=== PATIENT | female | born 1985 | race Caucasian/White ===

== ENCOUNTER 2024-05-01 15:38 | Outpatient (CLI) | payer BC ==
[2024-05-01 16:19] LABS: Basophils % (A) 0 %; Eosinophils # (A) 0.1 k/uL (0-0.7); Eosinophils % (A) 1 %; HCT 37.9 % (34.0-46.0); HGB 12.7 gm/dL (11.4-16.0); Lymphocytes # (A) 2.2 k/uL (1.0-4.8); Lymphocytes % (A) 17 %; MCH 30.4 pg (25.0-35.0); MCHC 33.4 g/dL (31.0-37.0); Mean Platelet Volume 8.5; Monocytes # (A) 0.7 k/uL (0-1.0); Monocytes % (A) 5 %; Neutrophils # (A) 9.9 k/uL (1.3-7.7); Neutrophils % (A) 76 %; Platelet Count 227 k/uL (150-450); RBC 4.16 m/uL (3.80-5.40); RDW 13.2 % (11.5-15.5)
[2024-05-01 16:23] VITALS: RESP 16
[2024-05-01 16:30] LABS: Appearance,Urine Clear (Clear); Bacteria,Urine Moderate /hpf; Bilirubin,Urine Negative (Negative); Blood,Urine Negative (Negative); Color,Urine Colorless; Glucose,Urine (UA) Negative (Negative); Ketones,Urine Negative (Negative); Leukocyte Esterase,Urine Large (Negative); Nitrite,Urine Negative (Negative); Protein,Urine Negative (Negative); RBC,Urine <1 /hpf (0-5); Specific Gravity,Urine 1.004 (1.001-1.035); Squamous Epithelial Cell,Urine 6 /hpf (0-4); Transitional Epi Cells,Urine <1 /hpf (0-1); Urobilinogen,Urine <2.0 mg/dL (<2.0); WBC,Urine 1 /hpf (0-5)
[2024-05-01 16:36] LABS: ALT 14 U/L (4-34); AST 23 U/L (14-36); African American GFR (CKD) >90 (>60 ml/min/1.73 sqM); Blood Urea Nitrogen 10 mg/dL (7-17); LDH 145 U/L (120-246); Non-African American GFR(CKD) >90 (>60 ml/min/1.73 sqM)
[2024-05-01 16:37] LABS: Protein/Creatinine Ratio,Urine 0.792
[2024-05-01 17:00] VITALS: BP 128/82; PULSE 87; TEMP 97.9
--- NOTE | 2024-05-05 12:10 | P.MSEPDOC ---
Presenting Problems - Arrival Data Date of Arrival on Unit: 05/01/24 Time of Arrival on Unit: 15:38 Mode of Transport: Ambulatory - Complaint OB-Reason for Admission/Chief Complaint: PIH Comment: came from office with order Medical History - Information : 1 Para: 0 Term: 0 : 0 Abortions: Spontaneous or Elective: 0 Number of Living Children: 0 - Gestational Age Gestational Age by JORDI (wks/days): 32 Weeks and 4 Days Review of Systems - Review of Systems Constitutional: No problems Breast: No problems ENT: No problems Cardiovascular: No problems Respiratory: No problems Gastrointestinal: No problems Genitourinary: No problems Musculoskeletal: No problems Neurological: No problems Skin: No problems Vital Signs - Temperature Temperature: 97.9 F Temperature Source: Temporal Artery Scan - Pulse Pulse Oximetery Pulse Rate: 87 Pulse Assessment Method: Pulse Oximetry - Respirations Respiratory Rate: 16 Oxygen Delivery Method: Room Air O2 Sat by Pulse Oximetry: 95 - Blood Pressure Right Arm Blood Pressure: 128/82 Blood Pressure Mean: 97 Blood Pressure Source: Automatic Cuff Medical Screen Scoring - Assessment - Baby A Heart Rate - NICHD Category: Category I (Normal) Physician Notification - Physician Notified Physician Notified Date: 05/01/24 Physician Notified Time: 16:39 Physician: Shelbi Jha New Order Received: Yes (d/c home) Maternal Triage Index - Maternal Triage Index Presenting for scheduled procedure w/no complaint: No - Stat/Priority 1 Stat Priority 1: No - Urgent/Priority 2 Urgent Priority 2: No - Prompt/Priority 3 Prompt Priority 3: No - Non-Urgent/Priority 4 Non-Urgent Priority 4: No - Scheduled/Requesting Priority 5 Scheduled/Requesting Priority 5: Yes Criteria Met for Priority 5: pt sent over from office for PIH work up Disposition - Disposition OB Disposition: Discharge to home Discharge Date: 05/01/24 Discharge Time: 16:45 I agree with the RN Medical Screening Exam: Yes Case reviewed; plan agreed upon as documented in EMR&OBIX.: Yes Diagnosis: RELATED CONDITIONS, UNSPECIFIED, THIRD TRIMESTER
== END 2024-05-01 16:45 | disposition home or self-care (01) ==
LOC: FBPOP 15:38
PROVIDERS: ATTEND Obstetrics & Gynecology Obstetrics
DX: O13.3 Gestational [pregnancy-induced] hypertension without significant proteinuria, third trimester (principal); Z3A.32 32 weeks gestation of pregnancy
CPT/HCPCS: 36415; 59025; 81001; 82565; 82570; 83615; 84156; 84450; 84460; 84520; 84550; 85025; 99215

== ENCOUNTER 2024-06-17 16:28 | Inpatient (IN) | payer BC ==
[2024-06-17] MEDS: LACTATED RINGERS 1,000 ML IV SCH (19:10)
[2024-06-17] MEDS ORDERED: TRANEXAMIC 1,000 MG/100ML-NACL 1,000 MG in EMPTY BAG 1 BAG IV PRN (19:12)
[2024-06-17] MEDS ORDERED: CARBOPROST TROMETHAMINE 250 MCG/ML 1 ML AMP IM PRN (19:12)
[2024-06-17] MEDS ORDERED: TERBUTALINE 1 MG/ML VIAL SQ PRN (19:12)
[2024-06-17] MEDS ORDERED: OXYTOCIN 10 UNIT/ML 1 ML VIAL IM PRN (19:12)
[2024-06-17] MEDS ORDERED: miSOPROStoL 200 MCG TAB PO PRN (19:12)
[2024-06-17] MEDS ORDERED: miSOPROStoL 200 MCG TAB RECTAL PRN (19:12)
[2024-06-17] MEDS ORDERED: LIDOCAINE 0.5% (PF) 5 MG/ML (50 ML SDV) SQ PRN (19:12)
[2024-06-17] MEDS ORDERED: METHYLERGONOVINE 0.2 MG/ML 1 ML AMP IM PRN (19:12)
[2024-06-17 19:35] LABS: Basophils # (A) 0.1 k/uL (0-0.2); Basophils % (A) 1 %; Eosinophils % (A) 0 %; HCT 41.5 % (34.0-46.0); Lymphocytes # (A) 2.2 k/uL (1.0-4.8); Lymphocytes % (A) 16 %; MCH 30.8 pg (25.0-35.0); MCHC 33.8 g/dL (31.0-37.0); MCV 91.3 fL (80.0-100.0); Mean Platelet Volume 9.7; Monocytes # (A) 0.7 k/uL (0-1.0); Monocytes % (A) 5 %; Neutrophils # (A) 10.9 k/uL (1.3-7.7); Neutrophils % (A) 78 %; Platelet Count 177 k/uL (150-450); RBC 4.55 m/uL (3.80-5.40); RDW 13.5 % (11.5-15.5)
[2024-06-17] MEDS ORDERED: fentaNYL (PF) 50 MCG/ML 5 ML AMP ONE (20:16)
[2024-06-17] MEDS ORDERED: SODIUM CHLORIDE 0.9% 250 ML BAG ONE (20:16)
[2024-06-17] MEDS ORDERED: ROPIVACAINE 5 MG/ML 30 ML VIAL ONE (20:16)
[2024-06-18] MEDS: OXYTOCIN 30 UNITS/500 ML NS 30 UNIT in SALINE 1 500ML.BAG IV SCH (07:30)
[2024-06-18] MEDS: CITRIC ACID-SODIUM CITRATE 15 ML CUP PO ONE (15:52)
[2024-06-18] MEDS ORDERED: ONDANSETRON 4 MG/2 ML VIAL ONE (16:12)
[2024-06-18] MEDS ORDERED: MORPHINE SULFATE (PF) 0.3 MG/0.3 ML SYR ONE (16:12)
[2024-06-18] MEDS ORDERED: OXYTOCIN 30 UNITS/500 ML NS BAG IV ONE (16:12)
[2024-06-18] MEDS ORDERED: fentaNYL (PF) 50 MCG/ML 2 ML AMP ONE (16:12)
--- NOTE | 2024-06-18 17:11 | P.OP ---
Date of Procedure: 06/18/24 Preoperative Diagnosis: IUP @ 39 4/7 weeks, blood stained amniotic fluid, arrest of dilation Postoperative Diagnosis: same Procedure(s) Performed: primary low-transverse section Anesthesia: epidural Surgeon: Shelbi Jha Sheep Shearer #1: Vannessa Harrison Estimated Blood Loss (ml): 889 IV fluids (ml): 1,000 Urine output (ml): 50 (maryjo colored) Pathology: other (placenta) Condition: stable Disposition: observation Indications for Procedure: The 8-year-old G2, P0 at 39+ weeks that presented to labor and delivery with complaints of regular painful contractions last evening. Patient was admitted to labor and delivery after cervical change was appreciated. Patient requested epidural and this was placed without difficulty by the anesthesia department. Patient made minimal progress to the evening, amniotomy was performed this morning and patient was noted to be 5 cm. Pitocin augmentation of labor was begun as contractions were spaced to every 7 minutes, mostly irregular. Patient made good progress through the morning to 9 cm. Patient has had no further progress past 9 cm, bloody stained amniotic fluid is appreciated. Reassuring heart tones category 1 are appreciated. Patient was counseled on arrest of dilation and reasoning behind primary C- section. Multiple questions are answered and patient and significant other agreed to proceed with section. Operative Findings: Male delivered at 1628, weight of 8 pounds 2 ounces, Apgars of 7 and 9 at 1 and 5 minutes respectively. Large amount of caput appreciated upon delivery of . Normal uterus, ovaries and tubes appreciated. Description of Procedure: Patient was taken back to the operating suite where epidural anesthesia was found be adequate. She is prepped and draped in the normal sterile fashion in the dorsal supine position. A Pfannenstiel skin incision was made with a scalpel and carried through the underlying layer of fascia. Fascia was incised in the midline and extended laterally. The superior aspect of the fascial incision was then grasped with Shelby clamps, elevated and the underlying rectus muscle was dissected off sharply. The inferior aspect of the fascial incision was then grasped with Shelby clamps, elevated and the underlying rectus muscle was dissected off sharply. The bladder blade was inserted in the pelvis, the vesicouterine peritoneum was identified and the bladder flap was created using sharp dissection. Hysterotomy incision was then made with a scalpel was elevated through the hysterotomy incision and delivered in the usual fashion. Spontaneous cry was noted. Umbilical cord was doubly clamped and cut, placenta was delivered manually. The uterus was cleared of all clots and debris. The uterine incision was closed with 0 Vicryl in a running locked fashion, a second imbricating suture was used to obtain hemostasis. The pelvis was then cleared of all clots and debris. On inspection the patient's hysterotomy incision a small amount of bleeding was noted on the midportion of the incision therefore a swjdir-dx-iofav suture was used to obtain hemostasis. Uterus was returned to the abdomen. Hysterotomy incision was inspected and found to be hemostatic. It was then loosely reapproximated. Rectus muscles were inspected and found to be hemostatic. Fascia was then closed with 0 Vicryl in a running fashion from 1 lateral edge to the other. Subcutaneous tissue was irrigated found to be hemostatic and closed with 3-0 Vicryl in a running fashion. Skin was then closed with 4-0 Vicryl in a subcuticular fashion. Steri-Strips and sterile dressings were applied. All counts were noted be correct x 2. Patient and infant tolerated delivery well and are resting comfortably.
[2024-06-18] MEDS ORDERED: ONDANSETRON 4 MG/2 ML VIAL IVP PRN (17:31)
[2024-06-18] MEDS ORDERED: METOCLOPRAMIDE 5 MG/ML 2 ML VIAL IVP PRN (17:31)
[2024-06-18] MEDS ORDERED: ZOLPIDEM 5 MG TAB PO PRN (17:31)
[2024-06-18] MEDS ORDERED: diphenhydrAMINE 25 MG CAP PO PRN (17:31)
[2024-06-18] MEDS ORDERED: diphenhydrAMINE 50 MG/ML 1 ML VIAL IVP PRN ×2 (17:31)
[2024-06-18] MEDS ORDERED: SIMETHICONE 80 MG CHEWABLE PO PRN (17:31)
[2024-06-18] MEDS ORDERED: diphenhydrAMINE 50 MG CAP PO PRN (17:31)
[2024-06-18] MEDS ORDERED: NALOXONE 0.4 MG/ML 1 ML VIAL IV PRN (17:31)
[2024-06-18] MEDS: LACTATED RINGERS 1,000 ML IV ONE (17:43)
[2024-06-18] MEDS: ACETAMINOPHEN IV (For NPO) 1,000 MG in EMPTY BAG 1 BAG IVPB ONE (20:12)
[2024-06-18] MEDS: SENNOSIDES-DOCUSATE SODIUM 1 EACH TAB PO SCH (20:29)
[2024-06-18] MEDS: LACTATED RINGERS 1,000 ML IV SCH (22:02)
[2024-06-19] MEDS: IBUPROFEN IV 800 MG in SODIUM CHLORIDE 0.9% 250 ML IV ONE (00:36)
[2024-06-19] MEDS: ACETAMINOPHEN TAB 500 MG TAB PO SCH (04:29)
[2024-06-19 06:41] LABS: Basophils # (A) 0.1 k/uL (0-0.2); Basophils % (A) 0 %; Eosinophils % (A) 0 %; HCT 32.2 % (34.0-46.0); Lymphocytes # (A) 1.9 k/uL (1.0-4.8); Lymphocytes % (A) 8 %; MCH 31.4 pg (25.0-35.0); MCHC 34.1 g/dL (31.0-37.0); MCV 92.2 fL (80.0-100.0); Mean Platelet Volume 9.7; Monocytes # (A) 0.7 k/uL (0-1.0); Monocytes % (A) 3 %; Neutrophils # (A) 19.8 k/uL (1.3-7.7); Neutrophils % (A) 87 %; Platelet Count 156 k/uL (150-450); WBC 22.6 k/uL (3.8-10.6)
[2024-06-19] MEDS: KETOROLAC 15 MG/ML 1 ML VIAL IVP SCH (07:59)
--- NOTE | 2024-06-19 08:38 | P.PNOBGPC ---
Subjective - Subjective Principal diagnosis: Postop day 1, primary Interval history: Patient is doing well. Breast-feeding is going well. She denies concerns this morning. Lochia is minimal. She states pain is well-controlled. Patient reports: Reports appetite normal, Reports voiding normally, Reports pain well controlled, Reports ambulating normally [place]: doing well Objective - Vital Signs Latest vital signs: Vital Signs Temp Pulse Pulse Resp BP BP Pulse Ox 06/19/24 08:00 98 F 77 16 132/76 99 06/19/24 04:00 98.0 F 71 16 136/74 99 06/19/24 01:00 98.1 F 73 16 134/74 98 06/18/24 21:02 73 70 16 06/18/24 19:02 73 16 131/77 100 06/18/24 18:47 74 16 127/74 98 06/18/24 18:32 76 16 132/80 100 06/18/24 18:17 74 16 140/87 100 06/18/24 18:02 77 16 146/79 100 06/18/24 17:47 74 16 121/81 100 06/18/24 17:32 76 16 114/71 98 06/18/24 17:17 81 16 117/64 98 06/18/24 17:02 98.1 F 85 16 123/68 97 Intake and Output 06/18/24 06/19/24 06/19/24 22:59 06:59 14:59 Output Total 800 500 Balance -800 -500 Output: Urine 800 500 Uretheral (Shannon) 800 Other: Voiding Method Indwelling Catheter - Exam Extremities: Present: normal, edema Abdomen: Present: normal appearance, soft Incision: Present: normal, dry, intact Uterus: Present: normal, firm - Labs Labs: Abnormal Lab Results - Last 24 Hours (Table) 06/19/24 Range/Units 05:52 WBC 22.6 H (3.8-10.6) k/uL RBC 3.50 L (3.80-5.40) m/uL Hgb 11.0 L D (11.4-16.0) gm/dL Hct 32.2 L (34.0-46.0) % Neutrophils # 19.8 H (1.3-7.7) k/uL Assessment and Plan (1) Term Current Visit: Yes Status: Acute Code(s): Z34.90 - ENCNTR FOR SUPRVSN OF NORMAL , UNSP, UNSP TRIMESTER SNOMED Code(s): 85687196 (2) Active labor Current Visit: Yes Status: Acute Code(s): VZE9090 - SNOMED Code(s): 823399475 (3) Status post section Current Visit: Yes Status: Acute Code(s): Z98.891 - HISTORY OF UTERINE SCAR FROM PREVIOUS SURGERY SNOMED Code(s): 210146491 (4) Arrest of dilation, delivered, current hospitalization Current Visit: Yes Status: Acute Code(s): O62.1 - SECONDARY UTERINE INERTIA SNOMED Code(s): 56073000 (5) Asynclitism Current Visit: Yes Status: Acute Code(s): O32.8XX0 - MATERNAL CARE FOR OTH MALPRESENTATION OF FETUS, UNSP SNOMED Code(s): 14777072 Plan: Patient is doing well postoperatively. Will encourage increased ambulation. Discontinue bandage at 24 hours. Continue routine postoperative care
--- NOTE | 2024-06-19 14:57 | P.PN ---
Progress Note - Text 06/19/24 623am 38-year-old female status post with spinal Duramorph. Patient seen and evaluated for postop pain control with a VAS of 5, she has complaints of nausea vomiting yesterday, doing better today. She does have mild pruritus which should subside.
[2024-06-19] MEDS: PRENATAL VIT-IRON-FOLIC ACID 1 EACH TABLET PO SCH (18:21)
[2024-06-19] MEDS: IBUPROFEN 800 MG TAB PO SCH (23:45)
[2024-06-20 03:25] VITALS: TEMP 97.8
--- NOTE | 2024-06-20 06:58 | P.DS ---
Providers Date of admission: 06/17/24 18:40 Expected date of discharge: 06/20/24 Attending physician: Shelbi Jha Primary care physician: Stated None - Discharge Diagnosis(es) (1) Term Current Visit: Yes Status: Acute (2) Active labor Current Visit: Yes Status: Acute (3) Status post section Current Visit: Yes Status: Acute (4) Arrest of dilation, delivered, current hospitalization Current Visit: Yes Status: Acute (5) Asynclitism Current Visit: Yes Status: Acute Hospital Course: 8-year-old G2 now P1 011 that presented to labor and delivery on 06/18 with complaints of contractions. Patient did have noted cervical change in triage therefore was admitted to labor and delivery. Patient did become uncomfortable and request epidural through the night. Patient made minimal to no change through the night therefore amniotomy was performed and Pitocin augmentation of labor was begun. Patient made slow progress through the day, patient was noted to be 9 cm, after approximately 4 hours and no progression past 9 cm amniotic fluid was noted to be with occasional clot passage. Patient was counseled on findings and agreed with recommendation for primary for maternal and wellbeing. Patient was taken back to the operating suite where a viable male was delivered at 1628, weight of 8 pounds 2 ounces, Apgars of 7 and 9 at 1 and 5 minutes respectively. For full details on the please see the operative report. Postoperatively this patient is doing well. In this postoperative day #2 she is ambulating and voiding without difficulty. She is tolerating a regular diet without nausea or vomiting. She states her pain is well-controlled. She denies concerns and would like discharge home later today. Patient Condition at Discharge: Good Plan - Discharge Summary New Discharge Prescriptions: No Action Vit No.179/Iron/Folic [ Tablet] 1 tab PO DAILY Aspirin 81 mg PO DAILY Discharge Medication List Aspirin 81 mg PO DAILY 05/01/24 [History] Vit No.179/Iron/Folic [ Tablet] 1 tab PO DAILY 05/01/24 [History] Follow up Appointment(s)/Referral(s): Shelbi Jha DO [Doctor of Osteopathic Medicine] - 07/31/24 1:00 pm (C/S appointment 07-02-2024 at 1:00pm) Patient Instructions/Handouts: (DC), (GEN) Activity/Diet/Wound Care/Special Instructions: No tub baths or intercourse until 6 weeks postoperatively. Jsdd-jhr-mahpzoa ibuprofen 600 mg or 3 tablets every 6 hours as needed for pain. Patient is to present to the office at 2 weeks for a routine postoperative check, this appointment has been made for her. In addition she will need a 6-week check. Patient is to call the office with any concerns prior to these appointments. Discharge Disposition: HOME SELF-CARE
[2024-06-20 08:37] VITALS: RESP 16
[2024-06-21 08:44] VITALS: BP 132/76; PULSE 76
--- NOTE | 2024-06-21 08:44 | P.MSEPDOC ---
Presenting Problems - Arrival Data Date of Arrival on Unit: 06/17/24 Time of Arrival on Unit: 18:40 Mode of Transport: Ambulatory - Complaint OB-Reason for Admission/Chief Complaint: Possible Onset of Labor Comment: contractions since 299 Medical History - Information : 2 Para: 0 Term: 0 : 0 Abortions: Spontaneous or Elective: 1 Number of Living Children: 0 - Gestational Age Gestational Age by JORDI (wks/days): 39 Weeks and 3 Days Review of Systems - Review of Systems Constitutional: No problems Breast: No problems ENT: No problems Cardiovascular: No problems Respiratory: No problems Gastrointestinal: No problems Genitourinary: No problems Musculoskeletal: No problems Neurological: No problems Skin: No problems Vital Signs - Temperature Temperature: 97.8 F Temperature Source: Axillary - Pulse Pulse Oximetery Pulse Rate: 76 Pulse Assessment Method: Pulse Oximetry Right Brachial Pulse Rate: 62 Pulse Assessment Method: Automatic Cuff - Respirations Respiratory Rate: 16 Oxygen Delivery Method: Room Air O2 Sat by Pulse Oximetry: 99 - Blood Pressure Right Arm Blood Pressure: 132/76 Blood Pressure Mean: 94 Blood Pressure Source: Automatic Cuff Right Arm Sitting Blood Pressure: 130/86 Blood Pressure Mean: 100 Blood Pressure Source: Automatic Cuff Medical Screen Scoring - Cervical Exam Dilation (cm): 4 Effacement (%): 80 Station: -2 Membranes: Intact - Uterine Contractions Frequency From (mins): 3 Frequency To (mins): 6 Duration From (seconds): 110 Duration To (seconds): 120 Intensity: Strong Resting: Soft to palpation - Assessment - Baby A Baseline FHR: 120 Heart Rate - NICHD Category: Category I (Normal) Physician Notification - Physician Notified Physician Notified Date: 06/17/24 Physician Notified Time: 18:35 Physician: Ana M Casarez Order Received: Yes (admit, epidural) Maternal Triage Index - Maternal Triage Index Presenting for scheduled procedure w/no complaint: No - Stat/Priority 1 Stat Priority 1: No - Urgent/Priority 2 Urgent Priority 2: No - Prompt/Priority 3 Prompt Priority 3: No - Non-Urgent/Priority 4 Non-Urgent Priority 4: Yes Criteria Met for Priority 4: 39.2 contractions Disposition - Disposition OB Disposition: Admit Discharge Date: 06/20/24 Discharge Time: 13:20 I agree with the RN Medical Screening Exam: Yes Case reviewed; plan agreed upon as documented in EMR&OBIX.: Yes Diagnosis: ENCOUNTER FOR FULL-TERM UNCOMPLICATED DELIVERY
== END 2024-06-20 13:20 | disposition home or self-care (01) | DRG 788 ==
LOC: FBPOP 16:28 → 4FBP 18:40
PROVIDERS: ADMIT Obstetrics & Gynecology Obstetrics; ATTEND Obstetrics & Gynecology Obstetrics
PROC: 10D00Z1 Extraction of Products of Conception, Low, Open Approach (ICD-10-PCS; principal; 2024-06-18 16:00)
DX: O64.9XX0 Obstructed labor due to malposition and malpresentation, unspecified, not applicable or unspecified (principal); Z37.0 Single live birth; O62.1 Secondary uterine inertia; Z3A.39 39 weeks gestation of pregnancy; O99.73 Diseases of the skin and subcutaneous tissue complicating the puerperium; L29.9 Pruritus, unspecified; Z79.82 Long term (current) use of aspirin; Z79.899 Other long term (current) drug therapy
CPT/HCPCS: 59025; 85025; 86850; 86900; 86901; 99213